=== PATIENT | male | born 1990 | race African-American/Black ===

== ENCOUNTER 2024-06-23 22:05 | Emergency (ER) | payer MEDICARE, OTHER ==
--- NOTE | 2024-06-23 23:08 | ED ---
Recheck HPI - General Source: patient, EMS, RN notes reviewed Mode of arrival: EMS Limitations: no limitations <Carmen Velasco - Last Filed: 06/23/24 23:07> - General Source: patient, RN notes reviewed, old records reviewed <Meng Lieberman - Last Filed: 06/24/24 02:38> - General Chief Complaint: Recheck/Abnormal Lab/Rx Stated Complaint: hypertension Time Seen by Provider: 06/23/24 23:07 - History of Present Illness Initial Comments: Quick [id number] male with history of hypertension sent from [facility] for high blood pressure. Patient states he is currently asymptomatic. He is residing at [facility] for alcohol use for the past 3 days. Denies chest pain, shortness of breath, headache, vision changes. (Carmen Velasco) Presents from [facility] for asymptomatic hypertension. Has a history of hypertension. Believes he has been receiving his medications. Last drank alcohol on Wednesday and it is currently Wednesday evening. He is at for alcohol abuse. Denies any acute complaints at this time. Denies headache, blurry vision, chest pain, shortness of breath. Has no other acute complaints at this time. Presents for further evaluation. (Meng Lieberman) - Related Data Previous Rx's Medication Instructions Recorded amLODIPine [Norvasc] 5 mg PO DAILY 28 Days #28 tab 06/24/24 Allergies Allergy/AdvReac Type Severity Reaction Status Date / Time No Known Allergies Allergy Verified 06/23/24 22:11 Review of Systems ROS Other: All systems not noted in ROS Statement are negative. <Carmen Velasco - Last Filed: 06/23/24 23:07> ROS Other: All systems not noted in ROS Statement are negative. <Meng Lieberman - Last Filed: 06/24/24 02:38> ROS Statement: Those systems with pertinent positive or pertinent negative responses have been documented in the HPI. Review of Systems: CONST: Denies fever EYES: Denies blurry vision ENT: Denies nasal congestion C/V: Denies Chest pain RESP: Denies shortness of breath GI: Denies abdominal pain : Denies dysuria SKIN: Denies rash. MSK: Denies joint pain. NEURO: Denies headache (Meng Lieberman) Past Medical History Past Medical History: GERD/Reflux, Hypertension History of Any Multi-Drug Resistant Organisms: None Reported Past Surgical History: Heart Catheterization Past Psychological History: Depression Smoking Status: Current every day smoker Past Alcohol Use History: Abuse, Daily, Heavy Past Drug Use History: Marijuana <Carmen Velasco - Last Filed: 06/23/24 23:07> General Exam Limitations: no limitations <Carmen Velasco - Last Filed: 06/23/24 23:07> <Meng Lieberman - Last Filed: 06/24/24 02:38> - General Exam Comments Initial Comments: Visual Physical Exam Vital signs reviewed General: Well-appearing, nontoxic, no acute distress. Head: Normocephalic, atraumatic Eyes: PERRLA, EOMI ENT: Airway patent Chest: Nonlabored breathing Skin: No visual rash, normal skin tone Neuro: Alert and oriented 3 Musculoskeletal: No gross abnormalities (Carmen Velasco) General: Appears in no acute distress. HEAD: Normal with no signs of head trauma. EYES: PERRLA, EOMI, conjunctiva normal, no discharge. Pupils are 3 mm and equal bilaterally. ENT: Hearing grossly intact, normal oropharynx. RESPIRATORY: Clear breath sounds bilaterally. No wheezes, rales, or rhonchi. C/V: Regular rate and rhythm. S1 and S2 auscultated, no edema, peripheral pulses 2+ and intact throughout ABD: Abd is soft, nontender, nondistended EXT: Normal range of motion, no obvious deformity SKIN: No rashes or lesions observed on exposed skin. NEURO: Alert and oriented x 4. (Meng Lieberman) Course Vital Signs 06/23/24 06/24/24 06/24/24 22:06 00:09 00:57 Temperature 98 F 97.9 F Pulse Rate 92 61 100 Respiratory 18 20 20 Rate Blood Pressure 163/124 168/130 181/112 O2 Sat by Pulse 98 97 97 Oximetry Medical Decision Making <Carmen Velasco - Last Filed: 06/23/24 23:07> - Lab Data Result diagrams: 06/23/24 23:09 06/23/24 23:09 - EKG Data -: EKG Interpreted by Me <Meng Lieberman - Last Filed: 06/24/24 02:38> - Medical Decision Making I completed the quick note portion of this chart signed Carmen Velasco PA-C (Carmen Velasco) Was pt. sent in by a medical professional or institution ([facility], [facility], urgent care, hospital, or longterm...) When possible be specific @ -Sent from [facility] for evaluation of asymptomatic hypertension Did you speak to anyone other than the patient for history (EMS, parent, family, police, friend...)? What history was obtained from this source @ -No Did you review nursing and triage notes (agree or disagree)? Why? @ -I reviewed and agree with nursing and triage notes Were old charts reviewed (outside hosp., previous admission, EMS record, old EKG, old radiological studies, urgent care reports/EKG's, longterm records)? Report findings @ -No old charts were reviewed Differential Diagnosis (chest pain, altered mental status, abdominal pain women, abdominal pain men, vaginal bleeding, weakness, fever, dyspnea, syncope, heada lila, dizziness, GI bleed, back pain, seizure, CVA, palpatations, mental health, musculoskeletal)? @ -BARBIE, hypertension, medication noncompliance. This list is not all inclusive. EKG interpreted by me (3pts min.). @ -As above X-rays interpreted by me (1pt min.). @ -Chest x-ray reveals no obvious acute cardiopulmonary process. CT interpreted by me (1pt min.). @ -None done U/S interpreted by me (1pt. min.). @ -None done What testing was considered but not performed or refused? (CT, X-rays, U/S, labs)? Why? @ -None What meds were considered but not given or refused? Why? @ -None Did you discuss the management of the patient with other professionals (professionals i.e. [facility], [facility], lab, RT, psych nurse, social work case manager, composite bond technician, teacher, airline pilot/first officer, case repairer)? Give summary @ -No Was smoking cessation discussed for >3mins.? @ -No Was critical care preformed (if so, how long)? @ -No Were there social determinants of health that impacted care today? How? (Homelessness, low income, unemployed, alcoholism, drug addiction, transportation, low edu. Level, literacy, decrease access to med. care, prison, rehab)? @ -No Was there de-escalation of care discussed even if they declined (Discuss DNR or withdrawal of care, Hospice)? DNR status @ -No What co-morbidities impacted this encounter? (DM, HTN, Smoking, COPD, CAD, Cancer, CVA, ARF, Chemo, Hep., AIDS, mental health diagnosis, sleep apnea, morbid obesity)? @ -Hypertension Was patient admitted / discharged? Hospital course, mention meds given and route, prescriptions, significant lab abnormalities, going to OR and other pertinent info. @ -Patient presents with hypertension. Apparently systolic blood pressures were in the 200s at [facility]. Here upon arrival patient was 163/124. We will obtain general workup. He has no symptoms at all. He believes he has been compliant with medications.. Workup started as a quick note in triage. Following workup, labs returned unremarkable. EKG is unremarkable. Chest x-ray unremarkable. Patient is still hypertensive without treatment to 181/112. Patient will receive IV hydralazine we will assess for improvement in his blood pressure. He remains asymptomatic. Patient's blood pressure is improved. Discussed that he has asymptomatic hypertension. However he is cleared for discharge home. I will place him on an additional blood pressure medication and he needs to be compliant with his normal meds at his facility as well. He was in agreement this plan. He will be discharged home with additional Norvasc 5 mg daily. Recommended follow-up with his PCP in the next 1 to 3 days and return if any worsening symptoms. He was in agreement this plan. I will provide the patient with a prescription for Norvasc. I instructed the patient to follow up with their PCP in the next 1-3 days.. I explained that the patient should return to the emergency department if they experience any worsening symptoms. Strict return precautions were discussed with the patient. The patient expressed understanding of these instructions. I answered all questions that the patient had. The patient was discharged home in good condition with their prescriptions and follow up information. Undiagnosed new problem with uncertain prognosis? @ -No Drug Therapy requiring intensive monitoring for toxicity (Heparin, Nitro, Insulin, Cardizem)? @ -No Were any procedures done? @ -No Diagnosis/symptom? @ -Asymptomatic hypertension Acute, or Chronic, or Acute on Chronic? @ -Acute Uncomplicated (without systemic symptoms) or Complicated (systemic symptoms)? @ -Uncomplicated Side effects of treatment? @ -No Exacerbation, Progression, or Severe Exacerbation? @ -No Poses a threat to life or bodily function? How? (Chest pain, [place], [place], pneumonia, PE, COPD, DKA, ARF, appy, cholecystitis, CVA, Diverticulitis, Homicidal, Suicidal, threat to staff... and all critical care pts) @ -Unlikely at this time (Meng Lieberman) - Lab Data Lab Results 06/23/24 06/23/24 Range/Units 23:09 23:09 WBC 7.0 (3.8-10.6) k/uL RBC 5.47 (4.30-5.90) m/uL Hgb 17.1 (13.0-17.5) gm/dL Hct 54.1 H (39.0-53.0) % MCV 99.0 (80.0-100.0) fL MCH 31.3 (25.0-35.0) pg MCHC 31.6 (31.0-37.0) g/dL RDW 15.6 H (11.5-15.5) % Plt Count 248 (150-450) k/uL MPV 7.9 Neutrophils % 53 % Lymphocytes % 36 % Monocytes % 4 % Eosinophils % 4 % Basophils % 1 % Neutrophils # 3.8 (1.3-7.7) k/uL Lymphocytes # 2.5 (1.0-4.8) k/uL Monocytes # 0.3 (0-1.0) k/uL Eosinophils # 0.3 (0-0.7) k/uL Basophils # 0.1 (0-0.2) k/uL Macrocytosis Slight Sodium 136 L (137-145) mmol/L Potassium 4.2 (3.5-5.1) mmol/L Chloride 104 (98-107) mmol/L Carbon Dioxide 23 (22-30) mmol/L Anion Gap 9 mmol/L BUN 12 (9-20) mg/dL Creatinine 0.92 (0.66-1.25) mg/dL Est GFR (CKD-EPI)AfAm >90 (>60 ml/min/1.73 sqM) Est GFR (CKD-EPI)NonAf >90 (>60 ml/min/1.73 sqM) Glucose 82 (74-99) mg/dL Calcium 9.6 (8.4-10.2) mg/dL Magnesium 1.9 (1.6-2.3) mg/dL Total Bilirubin 0.4 (0.2-1.3) mg/dL AST 36 (17-59) U/L ALT 40 (4-49) U/L Alkaline Phosphatase 74 (38-126) U/L Total Protein 7.7 (6.3-8.2) g/dL Albumin 4.5 (3.5-5.0) g/dL Serum Alcohol <10 mg/dL - EKG Data EKG Comments: 12-lead Electrocardiogram Interpretation Note EKG was reviewed and interpreted by myself. 12-lead ECG performed at 2241 is interpreted by me as revealing normal sinus rhythm at a rate of 91 beats per minute. Left axis deviation. MS interval is 139 ms, QRS duration is 110 ms, QTc is 386 ms.. There were no ST or T wave abnormalities to suggest myocardial ischemia or injury. R wave progression across the precordium was satisfactory. By my interpretation this EKG is non-diagnostic for acute ischemia. (Meng Lieberman) Disposition <Carmen Velasco - Last Filed: 06/23/24 23:07> Is patient prescribed a controlled substance at d/c from ED?: No Time of Disposition: 02:26 <Meng Lieberman - Last Filed: 06/24/24 02:38> Clinical Impression: Asymptomatic hypertension Disposition: HOME SELF-CARE Condition: Good Instructions (If sedation given, give patient instructions): Hypertension (ED) Prescriptions: amLODIPine [Norvasc] 5 mg PO DAILY 28 Days #28 tab Referrals: None,Stated [Primary Care Provider] - 1-2 days
[2024-06-23 23:35] LABS: Basophils # (A) 0.1 k/uL (0-0.2); Basophils % (A) 1 %; Eosinophils # (A) 0.3 k/uL (0-0.7); Eosinophils % (A) 4 %; HCT 54.1 % (39.0-53.0); HGB 17.1 gm/dL (13.0-17.5); Lymphocytes # (A) 2.5 k/uL (1.0-4.8); Lymphocytes % (A) 36 %; MCH 31.3 pg (25.0-35.0); MCHC 31.6 g/dL (31.0-37.0); Macrocytosis Slight; Mean Platelet Volume 7.9; Monocytes # (A) 0.3 k/uL (0-1.0); Monocytes % (A) 4 %; Neutrophils # (A) 3.8 k/uL (1.3-7.7); Neutrophils % (A) 53 %; Platelet Count 248 k/uL (150-450); RBC 5.47 m/uL (4.30-5.90); RDW 15.6 % (11.5-15.5)
[2024-06-23 23:54] LABS: ALT 40 U/L (4-49); AST 36 U/L (17-59); African American GFR (CKD) >90 (>60 ml/min/1.73 sqM); Albumin 4.5 g/dL (3.5-5.0); Alcohol <10 mg/dL; Alkaline Phosphatase 74 U/L (38-126); Anion Gap 9 mmol/L; Blood Urea Nitrogen 12 mg/dL (9-20); Calcium 9.6 mg/dL (8.4-10.2); Carbon Dioxide 23 mmol/L (22-30); Chloride 104 mmol/L (98-107); Glucose 82 mg/dL (74-99); Magnesium 1.9 mg/dL (1.6-2.3); Non-African American GFR(CKD) >90 (>60 ml/min/1.73 sqM); Potassium 4.2 mmol/L (3.5-5.1); Sodium 136 mmol/L (137-145); Total Bilirubin 0.4 mg/dL (0.2-1.3); Total Protein 7.7 g/dL (6.3-8.2)
--- NOTE | 2024-06-24 00:07 | XR ---
EXAM: XR Chest, 2 Views CLINICAL HISTORY: ITS.REASON XR Reason: hypertension TECHNIQUE: Frontal and lateral views of the chest. COMPARISON: No relevant prior studies available. FINDINGS: Lungs: Unremarkable. No consolidation. Pleural space: Unremarkable. No pneumothorax. Heart: Unremarkable. No cardiomegaly. Mediastinum: Unremarkable. Normal mediastinal contour. Bones/joints: Unremarkable. No acute fracture. IMPRESSION: Normal chest x-rays.
[2024-06-24 00:11] VITALS: RESP 20; TEMP 97.9
[2024-06-24] MEDS: hydrALAZINE HCL 20 MG/ML 1 ML VIAL IVP STA ×2 (00:15→01:05)
[2024-06-24 02:26] VITALS: BP 168/116; PULSE 94
[2024-06-24] MEDS: amLODIPine 5 MG TAB PO STA (02:48)
== END 2024-06-24 02:53 | disposition home or self-care (01) ==
LOC: EC 22:05
DX: I10 Essential (primary) hypertension (principal); F17.200 Nicotine dependence, unspecified, uncomplicated
CPT/HCPCS: 36415; 93005; 80053; 83735; 85025; 71046; 99284; 96374; 96376; G0480; J0360; 80320